=== PATIENT | male | born 1950 | race Caucasian/White ===

== ENCOUNTER 2017-10-24 12:34 | Emergency (ER) | payer MEDICARE, BC ==
--- NOTE | 2017-10-24 12:59 | EDM.PDOCBH ---
ED HPI GENERAL MEDICAL PROBLEM - General Chief Complaint: Behavioral/Psych Stated Complaint: EXHAUSTION, ANXIETY AND DEPRESSION Time Seen by Provider: 10/24/17 12:59 Source of Information: Reports: Patient History Limitations: Reports: No Limitations - History of Present Illness INITIAL COMMENTS - FREE TEXT/NARRATIVE: 67-year-old male presents to the ED with increased anxiety and depression symptoms and he keeps talking that he is experiencing some fernando as well. I cannot identify by history that he is suffering a manic events. He can't eat much because of depression. He wants to eat however. He can't sleep but is not due to not wanting to sleep it's because he simply can't fall asleep or stay asleep. He has a major disruption in his sleep patterns for over a month. HC feels he can no longer keep going. He doesn't feel suicidal or have any suicide plan. Dr Wayne just recently started him on sertraline in a gradually escalating dose starting at 25 mg for one week 50 mg for 1 week and currently on 75 mg daily. He states his mood swings have improved where he is not so tearful. He can read for 15 minutes at a time but has trouble focusing otherwise. Does crossword puzzles otherwise. Rarely watches television. He has pulled away from his coffee group with no longer going for the last 3-4 weeks prefers to be alone. 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 This is due to them dealing cocaine and methamphetamines from their apartment rooms. Currently these rooms are vacant but he has spent a great deal of time cleaning them thoroughly). Denies: Activity, Exercise, Lifting, Sick Contact, Trauma Associated Symptoms: Reports: Confusion, Headaches, Loss of Appetite, Malaise, Nausea/Vomiting. Denies: Chest Pain (At times. He states he has PTSD and a short-term memory impairment.), Cough, cough w sputum, Diaphoresis, Fever/ Chills (Sometimes), Rash, Seizure, Shortness of Breath, Syncope Treatments DRAMATIC AGENT: Reports: Other (see below) (No medications other than what has been prescribed to him. Does not drink alcohol and does not take street drugs.) Head Pain Score (Numeric/FACES): 3 - Related Data Allergies Allergy/AdvReac Type Severity Reaction Status Date / Time No Known Allergies Allergy Verified 10/24/17 12:53 Home Meds: Home Meds ClonazePAM [KlonoPIN] 2 mg PO BEDTIME #14 tab 10/24/17 [Rx] Lisinopril/Hydrochlorothiazide [Lisinopril-HCTZ 10-12.5 MG] 1 tab PO DAILY 10/24 [History] QUEtiapine [SEROquel] 15 - 25 mg PO DAILY 10/24/17 [History] Sertraline [Zoloft] 75 mg PO DAILY 10/24/17 [History] atorvaSTATin [Lipitor] 20 mg PO DAILY 10/24/17 [History] hydrOXYzine HCl [hydrOXYzine] 100 mg PO BEDTIME 10/24/17 [History] Past Medical History Psychiatric History: Reports: Anxiety, Depression, PTSD, Other (See Below) ( Severe insomnia at present) Social & Family History - Living Situation & Occupation Living situation: Reports: Single, Alone Occupation: Employed ED ROS GENERAL - Review of Systems Review Of Systems: See Below Constitutional: Reports: Malaise, Weakness, Fatigue, Weight Loss. Denies: Fever HEENT: Reports: Glasses Respiratory: Denies: Shortness of Breath, Wheezing, Pleuritic Chest Pain, Cough , Sputum Cardiovascular: Reports: No Symptoms Endocrine: Reports: Fatigue GI/Abdominal: Reports: No Symptoms : Reports: Frequency, Other Musculoskeletal: Reports: Joint Pain (Has known enlarged prostate.) Skin: Reports: No Symptoms ( Occasionally knees low back and hips and shoulders. ) Neurological: Reports: Confusion, Other Psychiatric: Reports: Anxiety (Impaired short-term memory.), Depression, Mood Lability. Denies: Cravings, Hallucinations, Suicidal Ideation Hematologic/Lymphatic: Reports: No Symptoms Immunologic: Reports: No Symptoms ED EXAM, BEHAVIORAL HEALTH - Physical Exam Exam: See Below Exam Limited By: No Limitations General Appearance: Alert, WD/WN, Moderate Distress (He is somewhat tearful and nearly breaks down when describing his current plight.) Eye Exam: Bilateral Eye: Normal Inspection Throat/Mouth: Normal Inspection, Normal Lips, Normal Teeth, Normal Oropharynx Head: Atraumatic, Normocephalic Neck: Normal Inspection, Supple, Non-Tender, Full Range of Motion. No: Lymphadenopathy (L), Lymphadenopathy (R) Respiratory/Chest: No Respiratory Distress, Lungs Clear, Normal Breath Sounds, No Accessory Muscle Use Cardiovascular: Normal Peripheral Pulses, Regular Rate, Rhythm, No Edema, No Murmur GI/Abdominal: Normal Bowel Sounds, Soft, Non-Tender, No Organomegaly, Other ( Mildly obese) Extremities: Normal Inspection, Normal Range of Motion, Non-Tender, No Pedal Edema Neurological: Alert, CN II-XII Intact, Normal Cognition, Normal Reflexes, No Motor/Sensory Deficits, Oriented x 3 Psychiatric: Oriented, Depressed Mood, Tearful. No: Non-Communicative, Poor Eye Contact, Uncooperative, Withdrawn, Flight of Ideas, Homicidal Thoughts, Phobic, Caodaism Delusions, Suicidal Plan, Suicidal Thoughts, Tangential Thoughts, Auditory Hallucinations, Visual Hallucinations, Grandiose Thoughts, Pressured Speech, Paranoid Thoughts, Threatening Behavior Skin Exam: Warm, Dry, Intact, Normal color, No rash COURSE, BEHAVIORAL HEALTH COMP - Course Vital Signs: Last Vital Signs Temp 36.7 C 10/24/17 12:47 Pulse 78 10/24/17 12:47 Resp 20 10/24/17 12:47 BP 125/85 10/24/17 12:47 Pulse Ox 99 10/24/17 12:47 Re-Assessment/Re-Exam: 67-year-old male presents the ED more or less out of a sense of desperation. 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 He reports it due to increased stressors in his life over the last 2-3 months he has developed severe insomnia and increased anxiety depression symptoms. Is currently being followed by Dr. Wayne and occasionally by Dr. Alvarado through [facility]. He reports very poor appetite. He feels anxious all the time he doesn't feel that he can cope he can't hardly focus on things at times. Is withdrawn from his coffee group. He finds himself more isolated. He denies any suicidal ideation or plan at this time. Decision made after lengthy discussion to increase his Seroquel from 25-50 mg at bedtime which should help alleviate some of his anxiety symptoms. It may also help him sleep a bit better. I added Klonopin 2 mg at bedtime to help him sleep. This would also relieve some anxiety. He is very worried about addiction but reassured that 1 pill a day will not create an addiction. I gave him 14 tablets. He is to follow- up with either Dr. Alvarado for Dr. Wayne within the next 10-14 days time Departure - Departure Time of Disposition: 13:26 Disposition: Home, Self-Care 01 Condition: Fair Clinical Impression: Depressive disorder, Anxiety, Insomnia disorder with non-sleep disorder mental comorbidity - Discharge Information *PRESCRIPTION DRUG MONITORING PROGRAM REVIEWED*: Not Applicable *COPY OF PRESCRIPTION DRUG MONITORING REPORT IN PATIENT MITCHEL: Not Applicable Prescriptions: ClonazePAM [KlonoPIN] 2 mg PO BEDTIME #14 tab Referrals: Jasiel Orlando MD [Primary Care Provider] - Forms: ED Department Discharge Additional Instructions: Evaluation in the emergency room today in regards to increased problems with generalized anxiety and severe insomnia. This is creating a much worsening of your depression with hypomania evident. Recently started on sertraline and the dosage has been gradually increased to 75 mg per day so therefore this medication is just starting to work as far as being an antidepressant and a reliever of anxiety. The biggest problem identified in our interview today was the severe insomnia with inability to sleep for well over a month. Hydralazine is no longer working to help you sleep. After looking through your medication list I think the best treatment plan is to start Klonopin 2 mg once daily at bedtime about an hour before you're planning to go to bed to reduce anxiety and to to sleep. I would also suggest increasing your Seroquel to a full 50 mg at bedtime. This too should help relieve anxiety and depression symptoms. Current dosages very low and I doubt is helping very much. Suggest strongly follow-up with Dr. Shelby suarez her and/or Dr. tijerina within the next 10-14 days to see how you are doing and to make further medication adjustments if needed.
== END 2017-10-24 14:05 | disposition home or self-care (01) ==
LOC: JD.ED 12:34
DX: F32.9 Major depressive disorder, single episode, unspecified (principal); F41.9 Anxiety disorder, unspecified; G47.00 Insomnia, unspecified; Z79.899 Other long term (current) drug therapy
CPT/HCPCS: 99283; 99284

== ENCOUNTER 2023-03-10 06:53 | Emergency (ER) | payer MEDICARE, BC ==
[2023-03-10 08:04] LABS: BASOPHILS PERCENT AUTO 0.7 % (0.0-1.0); EOSINOPHILS ABSOLUTE AUTO 0.2 K/mm3 (0.0-0.4); EOSINOPHILS PERCENT AUTO 4.5 % (0.0-6.0); HEMATOCRIT 41.2 % (42.0-52.0); HEMOGLOBIN 13.8 gm/dl (14.0-18.0); IMMATURE GRAN ABSOLUTE AUTO 0.01 K/mm3 (0.00-0.05); IMMATURE GRAN PERCENT AUTO 0.2 % (0.0-0.4); LYMPHOCYTES ABSOLUTE AUTO 1.5 K/mm3 (1.0-4.8); MEAN CORPUSCULAR HEMOGLOBIN 30.9 pg (28.0-32.0); MEAN CORPUSCULAR HGB CONC 33.5 g/dl (32.0-36.0); MEAN CORPUSCULAR VOLUME 92.2 fl (83.0-99.0); MEAN PLATELET VOLUME 9.6 fl (9.4-12.4); MONOCYTES ABSOLUTE AUTO 0.4 K/mm3 (0.0-0.8); MONOCYTES PERCENT AUTO 10.1 % (0.0-8.0); NEUTROPHILS ABSOLUTE AUTO 2.1 K/mm3 (1.8-7.7); NEUTROPHILS PERCENT AUTO 48.5 % (41.0-71.0); PLATELET COUNT,PLT 227 K/mm3 (150-400); RED BLOOD CELL COUNT 4.47 M/mm3 (4.52-5.90); WHITE BLOOD CELL COUNT,WBC 4.25 K/mm3 (3.9-11.3)
[2023-03-10 08:14] LABS: APPEARANCE,URINE TURBID (Clear); BILIRUBIN,URINE 3+ (Negative); COLOR,URINE RED (Yellow); GLUCOSE,URINE TRACE (Negative); KETONES,URINE 2+ (Negative); LEUKOCYTE ESTERASE,URINE 3+ (Negative); NITRITE,URINE NEGATIVE (Negative); OCCULT BLOOD,URINE 3+ (Negative); PH,URINE 8.5 (5.0-8.0); PROTEIN,URINE 3+ (Negative); UROBILINOGEN,URINE >=8.0 (0.2-1.0)
[2023-03-10 08:22] LABS: INR 1.03
[2023-03-10 08:25] LABS: A/G RATIO 1.1 (1-2); ALBUMIN 3.4 g/dl (3.4-5.0); ANION GAP 9.7 (5-15); BILIRUBIN TOTAL 0.6 mg/dL (0.2-1.0); BUN/CREATININE RATIO 12.7 (14-18); CALCIUM 8.8 mg/dL (8.5-10.1); CREATININE 1.1 mg/dL (0.7-1.3); EST CRCL DRUG DOSING (CG) 42.93 mL/min; POTASSIUM,K 3.7 mEq/L (3.5-5.1); PROTEIN TOTAL,TP 6.5 g/dl (6.4-8.2)
[2023-03-10 09:22] LABS: BACTERIA,URINE MANY /hpf (FEW); MUCUS,URINE NOT SEEN /hpf (FEW); RBC,URINE TOO NUMEROUS TO CNT /hpf (0-5); SQUAMOUS EPITHELIAL CELLS,UR NOT SEEN /hpf (0-5); WBC,URINE 0-5 /hpf (0-5)
== END 2023-03-10 09:20 ==
LOC: JD.ED 06:53
DX: N20.0 Calculus of kidney (principal); N30.01 Acute cystitis with hematuria; Z79.899 Other long term (current) drug therapy
CPT/HCPCS: 36415; 74176; 74176-26; 80053; 81001; 85025; 85610; 99284